=== PATIENT | female | born 1995 | race Caucasian/White ===

== ENCOUNTER 2019-04-07 23:33 | Inpatient (IN) | payer OTHER ==
[2019-04-07] MEDS ORDERED: Penicillin G Potassium IV* 5,000,000 UNITS in NS 0.9% 100 ML* 100 ML IVPB ONE (23:37)
[2019-04-07] MEDS ORDERED: Lactated Ringers 1000 ML Bag* 1,000 ML IV ONE (23:37)
[2019-04-07] MEDS ORDERED: Penicillin G Potassium IV* 3,000,000 UNITS in NS 0.9% 100 ML* 100 ML IVPB SCH (23:45)
--- NOTE | 2019-04-08 00:01 | HP ---
General Information - Reason for Visit Spontaneous rupture of membranes, labor - General Information Maternal Age: 23 Grav: 2 Para: 1 SAB: 0 IEA: 0 Estimated Due Date: 04/07/19 Determined By: Early Ultrasound Maternal Blood Type and Rh: O Positive - Results this Serology/RPR Result: Non-Reactive Rubella Result: Non-Immune HBsAg Result: Negative HIV Result: Negative GBS Culture Result: Positive Past Medical History Delivery History: Hx Uncomplicated Vaginal Delivery Delivery History Comment: 02/2013 8lbs 11oz male. complications: Pre-eclampsia. Delivered at [place]. Son with Vater Syndrome Pertinent Past Medical History: Non-Contributory Pertinent Past Surgical History: None Pertinent Family History: See Records Family History Comment: Son with Vater Syndrome - Antepartal Records Antepartal Records: Reviewed, Complicated by: - Rubella NI Review of Systems Constitutional: Uncomfortable - with UCs CV Complaint: No Respiratory: Shortness of Breath: No Gastrointestinal: No Nausea/Vomiting Genitourinary: Leaking Fluid, No Dysuria, No Bleeding Musculoskeletal: Contractions Neurological: No Headache, No Visual Changes Movement: Normal Exam Allergies/Adverse Reactions: Allergies No Known Allergies Allergy (Verified 04/07/19 19:11) - Measurements Height: 4 ft 11.75 in Weight: 211 lb Body Mass Index (BMI): 41.5 Pre- Weight: 178 lb - Exam Breast: Breast Exam Deferred CVA: No CVA Tenderness Extremities: No Edema Heart: Normal Rhythm/Heart Sounds HEENT: No Significant Findings Lungs: Clear Bilaterally Rectal: Rectal Exam Deferred Reflexes: DTR 2+ Thyroid: No Thyromegaly - Abdominal Exam Abdomen Exam: Non-Tender - Ultrasound/Biophysical Profile Ultrasound Status: Not Done Targeted Exam Findings See L&D Outpatient Visit Provider Note for Findings: N/A Estimated Weight: 8.5lbs by Nayely Cervical Exam: Complete Effacement: Complete Station: +2 Presenting Part: Vertex Membrane Status: SROM Amniotic Fluid Evaluation: Gross Rupture, Clear Sterile Speculum Exam: Not done Bleeding/Discharge: None EFM Findings - External Monitor Findings Baseline Heart Rate: 125 External Monitor Findings: Accelerations Present, No Pattern of Variable or Late Decelerations, Variability Moderate, Baseline Stable External Monitor Findings Comment: No evidence of metabolic acidemia Contractions: Regular, Moderate, 45-90 Seconds Contraction Frequency: q 2 min Assessment/Plan - Assessment IUP at 40-1/7 in labor No evidence of metabolic acidemia - Obstetrical Risk Factors Obstetrical Risk Factors: GBS Positive - Plan Plan: Admit - Anticipate Vaginal Delivery - Date/Time of Admission Date of Admission: 04/07/19 Time of Admission: 23:45
[2019-04-08] MEDS ORDERED: Oxytocin in LR* 0 UNITS/0 ML BAG IVPB ONE (00:15)
[2019-04-08] MEDS ORDERED: Glycerin ADULT SUPP PR PRN (00:23)
[2019-04-08] MEDS ORDERED: Acetaminophen TAB* 325 MG PO PRN (00:23)
[2019-04-08] MEDS ORDERED: Measles, Mumps,Rubella VACC* 0.5 ML/VIAL SUBCUT ONE (00:23)
[2019-04-08] MEDS ORDERED: Witch Hazel PAD* JAR TOPICAL PRN (00:23)
[2019-04-08] MEDS ORDERED: Dibucaine 1% 28.35 GM TUBE PR PRN (00:23)
--- NOTE | 2019-04-08 00:29 | PROCNOTE ---
[facility] OB: Delivery Note - Delivery A Date of : 04/08/19 Time of : 00:11 Chaun[place]y Sex: Male - "Samuels" Score 1 Minute: 8 Score 5 Minutes: 9 Gestational Age in Weeks and Days at Delivery: 40 Weeks and 1 Days Delivery Method: Spontaneous Vaginal Labor: Spontaneous Did Patient attempt ?: N/A, No Previous Amniotic Fluid: Clear Estimated Blood Loss: 300 Anesthesia/Analgesia: None Delivered By: Alex Arias - Nursery Level of Nursery: Regular/Bedside - Perineum Perineal Injury: Abrasion Only - Not Repaired Perineal Repair: None - Events Delivery Events of Note: Partial Course of Antibiotics - unable to complete due to precipitous - Additional Delivery Notes Additional Delivery Notes: Pt admitted in active labor s/p spontaneous rupture of membranes to clear fluid 04/07/19 at 2300. Length of active phase 45 minutes. Pushed x 8 minutes. liveborn male. Slow, controlled delivery of head. Direct OA. Tight transverse shoulders delivered in [place] with strong maternal push. Infant vigorous with spontaneous cry. HR>110bpm. Delivered to maternal abdomen. Cord clamped x 2 and cut by FOB when pulsations ceased. Spontaneous delivery intact placenta. Membranes complete. Fundus firm to massage with minimal bleeding noted. At time of note mother and infant in stable condition. Planning to breast feed.
[2019-04-08 00:35] LABS: ABS Eosinophils 0.2 10^3/ul (0-0.6); ABS Lymphocytes 2.7 10^3/ul (1.0-4.8); ABS Neutrophils 9.6 10^3/ul (1.5-7.7); Eosinophil % 1.7 %; Hematocrit 38 % (35-47); Hemoglobin 13.1 g/dL (12.0-16.0); Lymphocyte % 20.1 %; Mean Corpuscular HGB Conc 34 g/dL (31-36); Mean Corpuscular Hemoglobin 29 pg (27-31); Mean Corpuscular Volume 84 fL (80-97); Mean Platelet Volume 9.6 fL (7.4-10.4); Nucleated Red Blood Cells % 0.2; Platelet Count 173 10^3/uL (150-450); Red Blood Count 4.56 10^6 /uL (3.70-4.87); Red Cell Distribution Width 16 % (10-15); White Blood Count 13.6 10^3/uL (3.5-10.8)
[2019-04-08] MEDS ORDERED: Lactated Ringers 1000 ML Bag* 1,000 ML IV SCH (01:00)
[2019-04-08] MEDS: Ibuprofen TAB* 600 MG PO SCH ×4 (01:17→21:00)
[2019-04-08 03:29] LABS: Urine Benzodiazepine Screen None Detected (None Detect); Urine Opiates Screen None Detected (None Detect)
[2019-04-08] MEDS ORDERED: Simethicone TAB* 80 MG TAB.CHEW PO SCH (08:30)
[2019-04-08] MEDS: Docusate CAP* 100 MG PO SCH ×3 (09:03→21:05)
[2019-04-09] MEDS: Ibuprofen TAB* 600 MG PO SCH ×3 (01:00→20:14)
[2019-04-09 06:52] LABS: ABS Eosinophils 0.3 10^3/ul (0-0.6); ABS Lymphocytes 1.9 10^3/ul (1.0-4.8); ABS Monocytes 0.6 10^3/ul (0-0.8); ABS Neutrophils 8.2 10^3/ul (1.5-7.7); Eosinophil % 2.5 %; Hematocrit 34 % (35-47); Hemoglobin 11.3 g/dL (12.0-16.0); Lymphocyte % 17.2 %; Mean Corpuscular HGB Conc 34 g/dL (31-36); Mean Corpuscular Hemoglobin 29 pg (27-31); Mean Corpuscular Volume 85 fL (80-97); Platelet Count 161 10^3/uL (150-450); Red Blood Count 3.95 10^6 /uL (3.70-4.87); Red Cell Distribution Width 16 % (10-15)
[2019-04-09] MEDS ORDERED: Ferrous Gluconate TAB* 324 MG TAB PO SCH (09:00)
[2019-04-09] MEDS: Docusate CAP* 100 MG PO SCH ×3 (09:50→21:05)
[2019-04-10] MEDS: Ibuprofen TAB* 600 MG PO SCH ×3 (03:04→14:00)
[2019-04-10 07:51] VITALS: BP 97/62
[2019-04-10] MEDS: Docusate CAP* 100 MG PO SCH ×3 (09:00→14:29)
== END 2019-04-10 15:48 | disposition home or self-care (01) | DRG 560 ==
LOC: MCHOBOUT 23:33 → MCHOB 23:38
PROVIDERS: ADMIT Midwife; ATTEND Midwife
PROC: 10E0XZZ Delivery of Products of Conception, External Approach (ICD-10-PCS; principal; 2019-04-08)
PROC: 4A1HXCZ Monitoring of Products of Conception, Cardiac Rate, External Approach (ICD-10-PCS; 2019-04-08)
DX: O48.0 Post-term pregnancy (principal); Z37.0 Single live birth; Z3A.40 40 weeks gestation of pregnancy; O99.824 Streptococcus B carrier state complicating childbirth; O62.3 Precipitate labor; O71.82 Other specified trauma to perineum and vulva; O32.2XX0 Maternal care for transverse and oblique lie, not applicable or unspecified
CPT/HCPCS: 36415; 80307; 85025; 86850; 86900; 86901; 90707; A9270-GY; J2540